=== PATIENT | male | born 1945 | race Caucasian/White ===

== ENCOUNTER 2018-01-06 21:26 | Emergency (ER) | payer OTHER ==
[~2018-01-06] VITALS: Ht 165.1 cm; Wt 82.0 kg
[2018-01-06 21:30] VITALS: BP 141/76
[2018-01-06] MEDS ORDERED: LIDOCAINE 1%/EPI 1:100,000 10 ML VIAL IJ ONE (22:15)
[2018-01-06] MEDS ORDERED: BACITRACIN ZINC OINT UDPKT TOP ONE (22:15)
[2018-01-06] MEDS ORDERED: TETANUS, DIPHTHERIA, PERTUSSIS VAC/PF 0.5ML (>7YR OLD) IM ONE (22:15)
[2018-01-06 23:16] LABS: BASOPHILS % 0.3 % (0.0-2.0); EOSINOPHILS % 0.4 % (0.0-5.0); HEMATOCRIT. 35.9 % (42.0-52.0); HEMOGLOBIN. 12.4 g/dL (14.0-18.0); LYMPHOCYTES % 11.8 % (20.0-50.0); MEAN CORPUSCULAR HEMOGLOBIN 32.3 pg (28.0-32.0); MEAN CORPUSCULAR VOLUME 93.7 fL (80.0-94.0); MEAN PLATELET VOLUME 7.1 fl (7.4-10.4); MONOCYTES % 6.4 % (2.0-8.0); NEUTROPHILS % 81.1 % (40.0-76.0); PLATELET 210 x1000/uL (130-400); RED BLOOD CELL COUNT 3.83 mill/uL (4.7-6.1); RED CELL DISTRIBUTION WIDTH 13.1 % (11.6-14.6)
[2018-01-06 23:21] LABS: CHLORIDE 104 mEq/L (98-107)
[2018-01-06 23:24] LABS: PARTIAL THROMBOPLASTIN TIME 26.5 sec (23.4-31.0)
== END 2018-01-06 23:59 | disposition home or self-care (01) ==
LOC: ER 21:26
DX: S01.111A Laceration without foreign body of right eyelid and periocular area, initial encounter (principal); E11.9 Type 2 diabetes mellitus without complications; I10 Essential (primary) hypertension; Z86.73 Personal history of transient ischemic attack (TIA), and cerebral infarction without residual deficits; Z90.89 Acquired absence of other organs; W18.39XA Other fall on same level, initial encounter; Y93.89 Activity, other specified; Y92.89 Other specified places as the place of occurrence of the external cause; Y99.8 Other external cause status
CPT/HCPCS: 12011; 36415; 70450; 80053; 85025; 85610; 85730; 90471; 90715; 99285; J3490

== ENCOUNTER 2020-07-14 14:27 | Emergency (ER) | payer OTHER ==
[~2020-07-14] VITALS: Ht 172.7 cm; Wt 91.0 kg
[2020-07-14 16:01] LABS: BASOPHILS % 0.1 % (0.0-2.0); EOSINOPHILS % 0.1 % (0.0-5.0); HEMATOCRIT. 36.9 % (42.0-52.0); HEMOGLOBIN. 12.4 g/dL (14.0-18.0); LYMPHOCYTES % 7.1 % (20.0-50.0); MEAN CORPUSCULAR HEMOGLOBIN 31.9 pg (28.0-32.0); MEAN CORPUSCULAR VOLUME 95.2 fL (80.0-94.0); MEAN PLATELET VOLUME 7.3 fl (7.4-10.4); MONOCYTES % 6.4 % (2.0-8.0); NEUTROPHILS % 86.3 % (40.0-76.0); PLATELET 204 x1000/uL (130-400); RED BLOOD CELL COUNT 3.87 mill/uL (4.7-6.1); RED CELL DISTRIBUTION WIDTH 13.6 % (11.6-14.6)
[2020-07-14 16:12] LABS: CHLORIDE 104 mEq/L (98-107)
[2020-07-14 16:16] LABS: ETHANOL BLOOD < 10 mg/dL
[2020-07-14] MEDS ORDERED: ASPIRIN 81MG TABLET PO NR (17:00)
[2020-07-14] MEDS ORDERED: SODIUM CHLORIDE 0.9% 500 ML IV ONE (17:45)
[2020-07-14 18:45] VITALS: BP 112/69
== END 2020-07-14 19:18 | disposition short-term general hospital (02) ==
LOC: ER 14:27 → CANBEDREQ 19:01 → ER 19:18
DX: R55 Syncope and collapse (principal); I10 Essential (primary) hypertension; E11.9 Type 2 diabetes mellitus without complications; Z86.73 Personal history of transient ischemic attack (TIA), and cerebral infarction without residual deficits; Z20.822 Contact with and (suspected) exposure to COVID-19
CPT/HCPCS: 36415; 71045; 80053; 80320; 82962; 83880; 84484; 85025; 87426; 93005; 96360; 99285; G0480

== ENCOUNTER 2020-12-11 19:02 | Emergency (ER) | payer OTHER ==
[~2020-12-11] VITALS: Ht 170.2 cm; Wt 87.0 kg
[2020-12-11] MEDS ORDERED: SODIUM CHLORIDE 0.9% 1,000 ML IV ONE (20:15)
[2020-12-11 20:43] LABS: BASOPHILS % 0.5 % (0.0-2.0); EOSINOPHILS % 0.9 % (0.0-5.0); HEMATOCRIT. 33.6 % (42.0-52.0); HEMOGLOBIN. 11.8 g/dL (14.0-18.0); LYMPHOCYTES % 20.8 % (20.0-50.0); MEAN CORPUSCULAR HEMOGLOBIN 32.1 pg (28.0-32.0); MEAN CORPUSCULAR VOLUME 91.2 fL (80.0-94.0); MEAN PLATELET VOLUME 6.7 fl (7.4-10.4); MONOCYTES % 9.5 % (2.0-8.0); NEUTROPHILS % 68.3 % (40.0-76.0); PLATELET 205 x1000/uL (130-400); RED BLOOD CELL COUNT 3.68 mill/uL (4.7-6.1); RED CELL DISTRIBUTION WIDTH 14.6 % (11.6-14.6)
[2020-12-11 20:48] LABS: CHLORIDE 101 mEq/L (98-107)
[2020-12-11 20:52] LABS: PROTHROMBIN TIME 10.6 sec (9.6-11.0)
[2020-12-11 22:19] LABS: CLARITY URINE CLEAR (CLEAR); COLOR URINE YELLOW (YELLOW); KETONES URINE NEGATIVE (NEGATIVE); LEUKOCYTE ESTERASE URINE NEGATIVE (NEGATIVE); NITRITE URINE NEGATIVE (NEGATIVE); OCCULT BLOOD URINE NEGATIVE (NEGATIVE); PROTEIN URINE NEGATIVE (NEGATIVE); SPECIFIC GRAVITY URINE 1.016 (1.005-1.030); UROBILINOGEN URINE 0.2 E.U./dL (0.2-1.0)
[2020-12-11 23:18] VITALS: BP 113/63
== END 2020-12-11 23:18 | disposition home or self-care (01) ==
LOC: ER 19:02
DX: R53.1 Weakness (principal); F03.90 Unspecified dementia, unspecified severity, without behavioral disturbance, psychotic disturbance, mood disturbance, and anxiety; E11.9 Type 2 diabetes mellitus without complications; E78.00 Pure hypercholesterolemia, unspecified; I10 Essential (primary) hypertension; Z86.73 Personal history of transient ischemic attack (TIA), and cerebral infarction without residual deficits
CPT/HCPCS: 36415; 70450; 71045; 80053; 81003; 84484; 85025; 85610; 93005; 96360; 99285; J7030

== ENCOUNTER 2023-12-08 15:01 | Emergency (ER) | payer OTHER ==
[~2023-12-08] VITALS: Ht 170.2 cm; Wt 72.0 kg
[2023-12-08 15:05] VITALS: O2SAT 96
[2023-12-08 16:02] LABS: CHLORIDE 99 mEq/L (98-107); POTASSIUM 3.8 mEq/L (3.5-5.1); SODIUM 132 mEq/L (136-145)
[2023-12-08 16:03] LABS: CALCIUM 9.2 mg/dL (8.7-10.4); CARBON DIOXIDE 28 mEq/L (21-32)
[2023-12-08 16:06] LABS: PARTIAL THROMBOPLASTIN TIME 26.2 sec (23.4-31.0); PROTHROMBIN TIME 10.9 sec (9.6-11.0)
[2023-12-08 16:08] LABS: CREATININE 0.9 mg/dL (0.6-1.3); GLUCOSE 154 mg/dL (70-105); UREA NITROGEN BLOOD 11 mg/dL (9-23)
[2023-12-08 16:09] LABS: TROPONIN I HIGH SENSITIVITY 6 ng/L (3.0-53)
[2023-12-08] MEDS: SODIUM CHLORIDE 0.9% 1,000 ML IV ONE (16:11)
[2023-12-08 16:14] LABS: BASOPHILS % 0.2 % (0.0-2.0); EOSINOPHILS % 1.1 % (0.0-5.0); HEMOGLOBIN. 11.8 g/dL (14.0-18.0); LYMPHOCYTES % 17.5 % (20.0-50.0); MEAN CORPUSCULAR HEMOGLOBIN 31.1 pg (28.0-32.0); MEAN CORPUSCULAR HGB CONC 32.9 g/dL (31.0-37.0); MEAN CORPUSCULAR VOLUME 94.5 fL (80.0-94.0); MONOCYTES % 8.9 % (2.0-8.0); NEUTROPHILS % 72.3 % (40.0-76.0); PLATELET 224 x1000/uL (130-400); RED CELL DISTRIBUTION WIDTH 13.7 % (11.6-14.6); WHITE BLOOD COUNT 8.4 x1000/uL (4.5-11.0)
[2023-12-08 17:17] LABS: CLARITY URINE CLEAR (CLEAR); COLOR URINE YELLOW (YELLOW); GLUCOSE URINE NEGATIVE (NEGATIVE); KETONES URINE NEGATIVE (NEGATIVE); LEUKOCYTE ESTERASE URINE NEGATIVE (NEGATIVE); NITRITE URINE NEGATIVE (NEGATIVE); OCCULT BLOOD URINE 1+ (NEGATIVE); PH URINE 5.5 (4.5-8.0); PROTEIN URINE NEGATIVE (NEGATIVE); SPECIFIC GRAVITY URINE 1.018 (1.005-1.030)
[2023-12-08 17:41] LABS: BACTERIA URINE NONE SEEN; SQUAMOUS EPITHELIAL CELL URINE RARE /lpf (RARE/1+); WBC URINE NONE SEEN /hpf (0-2)
[2023-12-08] MEDS: MAGNESIUM 1 G PREMIX 100 ML IV ONE (19:51)
[2023-12-08 21:27] VITALS: BP 114/66; PULSE 105; RESP 19; TEMP 36.55848; O2SAT 94
== END 2023-12-08 21:38 | disposition short-term general hospital (02) ==
LOC: ER 15:01 → EDBEDREQTM 15:32 → EDBEDREQ 15:32 → ER 21:38
DX: S80.02XA Contusion of left knee, initial encounter (principal); R53.1 Weakness; R41.0 Disorientation, unspecified; R29.6 Repeated falls; E83.42 Hypomagnesemia; R62.7 Adult failure to thrive; F03.90 Unspecified dementia, unspecified severity, without behavioral disturbance, psychotic disturbance, mood disturbance, and anxiety; E11.9 Type 2 diabetes mellitus without complications; E78.00 Pure hypercholesterolemia, unspecified; I10 Essential (primary) hypertension; Z86.73 Personal history of transient ischemic attack (TIA), and cerebral infarction without residual deficits; Z90.89 Acquired absence of other organs; Z20.822 Contact with and (suspected) exposure to COVID-19; W18.39XA Other fall on same level, initial encounter; Y93.89 Activity, other specified; Y92.89 Other specified places as the place of occurrence of the external cause; Y99.8 Other external cause status
CPT/HCPCS: 99285; 96365; 70450; 71045; 96361; 87426; 80048; 81003; 83880; 83735; 85025; 85610; 85730; 87086; 84484; 36415; 73560; 93005; J3475; J7030

== ENCOUNTER 2024-07-13 15:57 | Inpatient (IN) | payer OTHER, MEDICARE ==
[~2024-07-13] VITALS: Ht 167.6 cm; Wt 70.8 kg
[~2024-07-13 15:57] MED LIST: ATOR20TA65 MT; B12/1TAB MT; CLOP-31 MT; DOCU-138 MT; LISI20TA31 MT; METF-1149 MT; MULT-1146 MT; POLY17PO3 MT
[2024-07-13 16:34] LABS: BASOPHILS % 0.3 % (0.0-2.0); EOSINOPHILS % 0.7 % (0.0-5.0); HEMATOCRIT. 36.8 % (42.0-52.0); HEMOGLOBIN. 12.5 g/dL (14.0-18.0); LYMPHOCYTES % 34.7 % (20.0-50.0); MEAN CORPUSCULAR HEMOGLOBIN 31.3 pg (28.0-32.0); MEAN CORPUSCULAR HGB CONC 33.9 g/dL (31.0-37.0); MEAN CORPUSCULAR VOLUME 92.4 fL (80.0-94.0); MEAN PLATELET VOLUME 7.4 fl (7.4-10.4); MONOCYTES % 6.8 % (2.0-8.0); NEUTROPHILS % 57.5 % (40.0-76.0); PLATELET 209 x1000/uL (130-400); RED BLOOD CELL COUNT 3.98 mill/uL (4.7-6.1); RED CELL DISTRIBUTION WIDTH 14.9 % (11.6-14.6); WHITE BLOOD COUNT 7.6 x1000/uL (4.5-11.0)
[2024-07-13 16:39] LABS: CARBON DIOXIDE 25 mEq/L (21-32); CHLORIDE 100 mEq/L (98-107); POTASSIUM 4.3 mEq/L (3.5-5.1); SODIUM 135 mEq/L (136-145)
[2024-07-13 16:40] LABS: CALCIUM 9.3 mg/dL (8.7-10.4)
[2024-07-13 16:45] LABS: CREATININE 0.9 mg/dL (0.6-1.3); ETHANOL BLOOD < 10 mg/dL (<10); GLUCOSE 170 mg/dL (70-105); TROPONIN I HIGH SENSITIVITY 5 ng/L (3.0-53); UREA NITROGEN BLOOD 11 mg/dL (9-23)
[2024-07-13 17:37] LABS: PROTHROMBIN TIME 10.6 sec (9.6-11.0)
[2024-07-13 20:00] VITALS: BP 143/76; PULSE 97; RESP 18; TEMP 36.5; O2SAT 97
[2024-07-13] MEDS ORDERED: FERR325T30 PO (21:36)
[2024-07-13] MEDS ORDERED: CALC-1139 MT (21:36)
[2024-07-13] MEDS ORDERED: SENN-362 MT (21:38)
[2024-07-13] MEDS ORDERED: TOPUD MT (21:47)
[2024-07-13] MEDS ORDERED: LACT10SO81 MT (21:49)
[2024-07-13] MEDS ORDERED: METF-414 PO (21:49)
[2024-07-13] MEDS ORDERED: DEXTROSE 50% WATER 50ML SYRINGE IV PRN (23:15)
[2024-07-13] MEDS ORDERED: IOHEXOL-350 100 ML BOTTLE ONE (23:36)
[2024-07-14] VITALS: BP 112/63; PULSE 105; RESP 18; TEMP 37; O2SAT 98
[2024-07-14 04:00] VITALS: BP 112/66; PULSE 77; RESP 18; TEMP 37; O2SAT 97
[2024-07-14] MEDS: BLOOD SUGAR DIAGNOSTIC STRIP TEST SCH (05:52)
[2024-07-14 08:08] VITALS: BP 129/53; PULSE 67; RESP 17; TEMP 37.2; O2SAT 95
[2024-07-14] MEDS: INSULIN LISPRO 100 UNITS/ML SUBCUT SCH (08:10)
[2024-07-14 08:52] LABS: CHLORIDE 98 mEq/L (98-107); POTASSIUM 3.8 mEq/L (3.5-5.1); SODIUM 134 mEq/L (136-145)
[2024-07-14 08:53] LABS: CARBON DIOXIDE 24 mEq/L (21-32)
[2024-07-14 08:54] LABS: BASOPHILS % 0.2 % (0.0-2.0); EOSINOPHILS % 1.2 % (0.0-5.0); HEMATOCRIT. 36.8 % (42.0-52.0); HEMOGLOBIN. 12.5 g/dL (14.0-18.0); LYMPHOCYTES % 10.5 % (20.0-50.0); MEAN CORPUSCULAR HEMOGLOBIN 31.1 pg (28.0-32.0); MEAN CORPUSCULAR VOLUME 91.4 fL (80.0-94.0); MEAN PLATELET VOLUME 7.4 fl (7.4-10.4); NEUTROPHILS % 82.1 % (40.0-76.0); PLATELET 194 x1000/uL (130-400); RED BLOOD CELL COUNT 4.03 mill/uL (4.7-6.1); RED CELL DISTRIBUTION WIDTH 14.8 % (11.6-14.6); WHITE BLOOD COUNT 9.9 x1000/uL (4.5-11.0)
[2024-07-14 08:58] LABS: CREATININE 0.7 mg/dL (0.6-1.3); GLUCOSE 82 mg/dL (70-105); TRIGLYCERIDE 88 mg/dL (0-150); UREA NITROGEN BLOOD 9 mg/dL (9-23)
[2024-07-14 08:59] LABS: LDL CHOLESTEROL 49 mg/dL (5-100)
[2024-07-14 09:00] LABS: CHOLESTEROL 114 mg/dL (<200); HDL CHOLESTEROL 46 mg/dL (>55)
[2024-07-14] MEDS: CLOPIDOGREL 75MG TABLET PO SCH (09:43)
[2024-07-14] MEDS: LOSARTAN 50 MG TABLET PO SCH (09:43)
[2024-07-14] MEDS: ASPIRIN 81MG TABLET PO SCH (09:43)
[2024-07-14 12:09] VITALS: BP 111/61; PULSE 84; RESP 18; TEMP 36.4; O2SAT 98
[2024-07-14 16:35] VITALS: BP 112/56; PULSE 82; TEMP 97.5; O2SAT 98
[2024-07-14 16:46] VITALS: BP 112/55; PULSE 80; RESP 18; TEMP 36.6; O2SAT 96
[2024-07-14] MEDS ORDERED: ATORVASTATIN CALCIUM 40MG TABLET PO SCH (21:00)
[2024-07-14] MEDS ORDERED: ENOXAPARIN 40MG/0.4ML SYR SUBCUT SCH (21:00)
== END 2024-07-14 17:20 | disposition short-term general hospital (02) | DRG 66 ==
LOC: ER 15:57 → 7WST 18:01 → EDBEDREQ 18:06 → EDBEDREQTM 18:06
PROVIDERS: ADMIT Internal Medicine; ATTEND Internal Medicine
DX: I63.9 Cerebral infarction, unspecified (principal); E11.9 Type 2 diabetes mellitus without complications; I10 Essential (primary) hypertension; F03.90 Unspecified dementia, unspecified severity, without behavioral disturbance, psychotic disturbance, mood disturbance, and anxiety; E78.00 Pure hypercholesterolemia, unspecified; Z86.73 Personal history of transient ischemic attack (TIA), and cerebral infarction without residual deficits; I67.1 Cerebral aneurysm, nonruptured
CPT/HCPCS: 36415; 70496; 70498; 70551; 71045; 80048; 80061; 80320; 82962; 84484; 85025; 93005; 97162; 99285; Q9967; G0480